=== PATIENT | female | born 1970 | race Caucasian/White ===

== ENCOUNTER 2016-04-30 16:26 | Inpatient (IN) | payer SELFPAY ==
[2016-04-30] MEDS ORDERED: ONDANSETRON 4 MG TAB.RAPDIS PO ONE (17:11)
--- NOTE | 2016-04-30 17:17 | ER Document Report ---
ED Medical Screen (RME) - General Chief Complaint: Abdominal Pain Stated Complaint: LOWER ABDOMINAL PAIN,VOMITING Mode of Arrival: Medic Information source: Patient Notes: 45 female presents to emergency department via EMS complaining of intermittent persistent mid and lower abdominal pain since yesterday that radiates to her back. Reports associated nausea and chills. Denies chest pain or shortness of breath. I have greeted and performed a rapid initial assessment of this patient. A comprehensive ED assessment and evaluation of the patient, analysis of test results and completion of the medical decision making process will be conducted by additional ED providers. TRAVEL OUTSIDE OF THE [place] IN LAST 30 DAYS: No - Related Data Allergies/Adverse Reactions: Penicillins Allergy (Intermediate, Verified 04/30/16 16:32) "skin burn", RASH Sulfa (Sulfonamide Antibiotics) Allergy (Intermediate, Verified 04/30/16 16:32) "skin burn" Past Medical History - Past Medical History Cardiac Medical History: Denies: Hx Coronary Artery Disease, Hx Heart Attack, Hx Hypertension Pulmonary Medical History: Reports: Hx Asthma Denies: Hx Bronchitis, Hx COPD, Hx Pneumonia Neurological Medical History: Denies: Hx Cerebrovascular Accident, Hx Seizures Renal/ Medical History: Denies: Hx Peritoneal Dialysis Musculoskeltal Medical History: Denies Hx Arthritis Past Surgical History: Reports: Hx Appendectomy, Hx Section - x3, Hx Tonsillectomy, Hx Tubal Ligation - Immunizations Immunizations up to date: Yes Hx Diphtheria, Pertussis, Tetanus Vaccination: Yes - 04/2015 Physical Exam - Vital signs Vitals: Temp Pulse Resp BP Pulse Ox 98.0 F 93 20 94/57 L 99 04/30/16 16:40 04/30/16 16:40 04/30/16 16:40 04/30/16 16:40 04/30/16 16:40 - General General appearance: Alert In distress: None - Respiratory Respiratory status: No respiratory distress - Cardiovascular Rhythm: Regular Pulses: Normal: Radial Normal capillary refill: Yes Course - Vital Signs Vital signs: Temp Pulse Resp BP Pulse Ox 98.2 F 110 H 20 123/69 99 04/30/16 17:05 04/30/16 17:05 04/30/16 17:05 04/30/16 17:05 04/30/16 17:05
[2016-04-30 18:53] LABS: HEMATOCRIT 39.3 % (36.0-47.0); HEMOGLOBIN 12.5 g/dL (12.0-15.5); HGB HCT DIFFERENCE -1.8; MEAN CORPUSCULAR HEMOGLOBIN 23.5 pg (27.0-33.4); MEAN CORPUSCULAR HGB CONC 31.8 g/dL (32.0-36.0); MEAN CORPUSCULAR VOLUME 74 fl (80-97); RED BLOOD COUNT 5.33 10^6/uL (3.72-5.28); RED CELL DISTRIBUTION WIDTH 16.7 % (11.5-14.0); WHITE BLOOD COUNT 14.7 10^3/uL (4.0-10.5)
[2016-04-30 19:11] LABS: BASOPHILS % (MANUAL) 0 % (0-2); EOSINOPHILS % (MANUAL) 1 % (0-6); LYMPHOCYTES % (MANUAL) 4 % (13-45); TOTAL CELLS COUNTED 100
[2016-04-30 19:13] LABS: ANISOCYTOSIS 1+; HYPOCHROMASIA SLIGHT; MICROCYTOSIS 1+; TOXIC GRANULATION SLIGHT
[2016-04-30 19:15] LABS: ALANINE AMINOTRANSFERASE 31 U/L (9-52); ALKALINE PHOSPHATASE 91 U/L (38-126); ANION GAP 12 (5-19); ASPARTATE AMINO TRANSFERASE 21 U/L (14-36); BILIRUBIN,TOTAL 1.8 mg/dL (0.2-1.3); BLOOD UREA NITROGEN 14 mg/dL (7-20); CALCIUM 9.5 mg/dL (8.4-10.2); CARBON DIOXIDE 22 mmol/L (22-30); CHLORIDE 99 mmol/L (98-107); CREATININE RESULT 1.11 mg/dL (0.52-1.25); GLUCOSE 200 mg/dL (75-110); LIPASE 25.8 U/L (23-300); POTASSIUM 4.6 mmol/L (3.6-5.0); SODIUM 133.3 mmol/L (137-145); TOTAL PROTEIN 7.7 g/dL (6.3-8.2)
[2016-04-30] MEDS ORDERED: NORMAL SALINE 1000 ML 1,000 ML IV PRN (20:47)
[2016-04-30] MEDS ORDERED: MORPHINE SULFATE 10 MG/ML INJ IV ONE (20:47)
[2016-04-30] MEDS ORDERED: FAMOTIDINE INJ/PF 20 MG/2 ML SDV IV ONE (20:47)
[2016-04-30] MEDS ORDERED: ONDANSETRON HCL INJ/PF 4 MG/2 ML SDV IV ONE (20:47)
--- NOTE | 2016-04-30 20:47 | ER Document Report ---
ED GI/ - General Chief Complaint: Abdominal Pain Stated Complaint: LOWER ABDOMINAL PAIN,VOMITING Time seen by provider: 20:47 Mode of Arrival: Medic TRAVEL OUTSIDE OF THE [place] IN LAST 30 DAYS: No - HPI Patient complains to provider of: Abdominal pain, Vomiting Onset: Other - Tuesday Timing/Duration: Persistent, Worse Quality of pain: Sharp, Stabbing Severity at maximum: Severe Severity in ED: Severe Pain Level: 5 Location: RLQ Associated symptoms: Chills, Diarrhea, Fever, Nausea, Vomiting Exacerbated by: Denies Relieved by: Denies Similar symptoms previously: Yes Recently seen / treated by doctor: No Notes: 05/01/16 03:59 Patient is a 45-year-old female who presents to the emergency room complaining of lower abdominal pain that started Tuesday night and has worsened over the past few days, she reports it is constant achy and sharp and stabbing on occasion, she reports fever and chills, nausea, vomiting and diarrhea, denies any sick contacts, no recent travel, no questionable food intake, patient reports a history of appendectomy in 2011 at a hospital in [place] - Related Data Allergies/Adverse Reactions: Penicillins Allergy (Intermediate, Verified 04/30/16 16:32) "skin burn", RASH Sulfa (Sulfonamide Antibiotics) Allergy (Intermediate, Verified 04/30/16 16:32) "skin burn" Past Medical History - General Information source: Patient - Social History Smoking Status: Unknown if Ever Smoked Family History: Reviewed & Not Pertinent Patient has suicidal ideation: No Patient has homicidal ideation: No - Past Medical History Cardiac Medical History: Denies: Hx Coronary Artery Disease, Hx Heart Attack, Hx Hypertension Pulmonary Medical History: Reports: Hx Asthma Denies: Hx Bronchitis, Hx COPD, Hx Pneumonia Neurological Medical History: Denies: Hx Cerebrovascular Accident, Hx Seizures Renal/ Medical History: Denies: Hx Peritoneal Dialysis Musculoskeltal Medical History: Denies Hx Arthritis Past Surgical History: Reports: Hx Appendectomy, Hx Section - x3, Hx Tonsillectomy, Hx Tubal Ligation - Immunizations Immunizations up to date: Yes Hx Diphtheria, Pertussis, Tetanus Vaccination: Yes - 04/2015 Hx Pneumococcal Vaccination: 03/14/12 Review of Systems - Review of Systems Constitutional: Chills, Fever EENT: No symptoms reported Cardiovascular: No symptoms reported Respiratory: No symptoms reported Gastrointestinal: See HPI Genitourinary: No symptoms reported Female Genitourinary: No symptoms reported Musculoskeletal: No symptoms reported Skin: No symptoms reported Hematologic/Lymphatic: No symptoms reported Neurological/Psychological: No symptoms reported -: Yes All other systems reviewed and negative Physical Exam - Vital signs Vitals: Temp Pulse Resp BP Pulse Ox 98.0 F 93 20 94/57 L 99 04/30/16 16:40 04/30/16 16:40 04/30/16 16:40 04/30/16 16:40 04/30/16 16:40 Interpretation: Hypotensive - General General appearance: Appears well, Alert - HEENT Head: Normocephalic, Atraumatic Eyes: Normal Pupils: PERRL - Respiratory Respiratory status: No respiratory distress Chest status: Nontender Breath sounds: Normal Chest palpation: Normal - Cardiovascular Rhythm: Regular Heart sounds: Normal auscultation Murmur: No - Abdominal Inspection: Normal, Obese Distension: No distension Bowel sounds: Normal Tenderness: Tender - Right lower quadrant and suprapubic Organomegaly: No organomegaly - Back Back: Normal, Nontender - Extremities General upper extremity: Normal inspection, Nontender, Normal color, Normal ROM , Normal temperature General lower extremity: Normal inspection, Nontender, Normal color, Normal ROM , Normal temperature, Normal weight bearing. No: Dayday's sign - Neurological Neuro grossly intact: Yes Cognition: Normal Orientation: AAOx4 Rene Coma Scale Eye Opening: Spontaneous Shannon Coma Scale Verbal: Oriented Rene Coma Scale Motor: Obeys Commands Shannon Coma Scale Total: 15 Speech: Normal Motor strength normal: LUE, RUE, LLE, RLE Sensory: Normal - Psychological Associated symptoms: Normal affect, Normal mood - Skin Skin Temperature: Warm Skin Moisture: Dry Skin Color: Normal Course - Re-evaluation Re-evalutation: 05/01/16 04:[address] scan reading shows evidence of appendicitis, I had a discussion with the radiologist, Dr. Rodriguez and informed him that patient reports a history of appendectomy in 2011, he took a closer look and reports that patient does have cervical changes but it appears as though a portion of the appendix was left behind and that is now infected, patient was discussed with the on-call surgeon, Dr. Red, who evaluated patient in the emergency room and it admitted patient for further evaluation and treatment, Dr. Red took patient to the OR for appendectomy - Vital Signs Vital signs: Temp Pulse Resp BP Pulse Ox 98.2 F 110 H 20 123/69 99 04/30/16 17:05 04/30/16 17:05 04/30/16 17:05 04/30/16 17:05 04/30/16 17:05 - Laboratory Result Diagrams: 04/30/16 18:35 04/30/16 18:35 Laboratory results interpreted by me: 04/30/16 04/30/16 04/30/16 18:35 18:35 22:32 WBC 14.7 H RBC 5.33 H MCV 74 L MCH 23.5 L MCHC 31.8 L RDW 16.7 H Seg Neuts % (Manual) 88 H Lymphocytes % (Manual) 4 L Abs Neuts (Manual) 12.9 H Sodium 133.3 L Est GFR (Non-Af Amer) 53 L Glucose 200 H Total Bilirubin 1.8 H Urine Ketones TRACE H Urine Urobilinogen 2.0 H - Diagnostic Test Radiology reviewed: Image reviewed, Reports reviewed - Transfer of Care Care transferred to following provider: Dr. Red Discharge - Discharge Clinical Impression: Acute appendicitis Qualifiers: Acute appendicitis type: with localized peritonitis Qualified Code(s): K35.3 - Acute appendicitis with localized peritonitis Condition: Fair Disposition: ADMITTED INPATIENT Admitting Provider: Surgicalist Unit Admitted: Surgical Floor
[2016-04-30 22:45] LABS: APPEARANCE,URINE CLEAR; BILIRUBIN,URINE NEGATIVE (NEGATIVE); GLUCOSE, URINE NEGATIVE (NEGATIVE); KETONES,URINE TRACE mg/dL (NEGATIVE); LEUKOCYTE ESTERASE,URINE NEGATIVE (NEGATIVE); NITRITE,URINE NEGATIVE (NEGATIVE); PROTEIN,URINE NEGATIVE (NEGATIVE)
[2016-04-30 22:49] LABS: URINE SPECIFIC GRAVITY > 1.060
[2016-04-30] MEDS ORDERED: ERTAPENEM SODIUM INJ 1 GM VIAL IV ONE (23:17)
[2016-05-01] MEDS ORDERED: ALBUTEROL SULFATE 0.083% NEB 2.5 MG/3 ML AMPUL NEB ONE (00:36)
[2016-05-01] MEDS ORDERED: MIDAZOLAM 2 MG/2 ML INJ ONE (00:40)
[2016-05-01] MEDS ORDERED: ONDANSETRON HCL INJ/PF 4 MG/2 ML SDV ONE (00:40)
[2016-05-01] MEDS ORDERED: DEXAMETHASONE SOD PHOSPHATE INJ 4 MG/1 ML VIAL ONE (00:40)
[2016-05-01] MEDS ORDERED: FENTANYL CITRATE INJ/PF 100 MCG/2 ML AMPUL ONE (00:40)
[2016-05-01] MEDS ORDERED: PROPOFOL INJ 200 MG/20 ML VIAL IV ONE (00:41)
[2016-05-01] MEDS ORDERED: MORPHINE SULFATE 10 MG/ML INJ ONE (00:41)
[2016-05-01] MEDS ORDERED: MORPHINE SULFATE 10 MG/ML INJ IV ONE (00:50)
[2016-05-01] MEDS ORDERED: LIDOCAINE 1% INJ-PF (10 MG/ML) 30 ML SDV ONE (01:14)
[2016-05-01] MEDS ORDERED: BUPIVACAINE HCL 0.25% /EPINEPHRINE INJ/PF 30 ML SDV ONE (01:15)
--- NOTE | 2016-05-01 01:53 | PDOC H&P ---
History of Present Illness Admission Date/PCP: 05/01/16 00:29 History of Present Illness: RADHA STOVER is a 45 year old white female with increasing abdominal pain since Tuesday night. Tuesday night had abdominal pain, lower abdomen, 2/ 10. Sharp. There is abdominal pain progressed to 5/10. also had nausea and vomiting. Tuesday abdominal pain increased in severity, 10/10, sharp , constant. Also radiated to the upper abdomen from the lower abdomen. Had fevers up to 102.5. Again had nausea and vomiting. Also reports headache, fatigue, loss of appetite over the last 2 days. Also reports chills, sweats, shakes. When standing had dizziness, lightheadedness and headaches. Denies blood in her stools, blood in her urine, pain with defecation, pain with urination, diarrhea, constipation. Difficult to become comfortable. Past surgical history: History of appendectomy for ruptured appendicitis in 2012 in [place], 3, right heel surgery in April 2015. Past Medical History Pulmonary Medical History: Reports: Asthma Endocrine Medical History: Reports: Obesity Psychiatric Medical History: Reports: Tobacco Dependency Past Surgical History Past Surgical History: Reports: Appendectomy, Section - x3, Orthopedic Surgery - Right heel surgery April 2015, Tonsillectomy, Tubal Ligation Social History Information Source: Patient Lives with: Family Smoking Status: Current Every Day Smoker Frequency of Alcohol Use: None Hx Recreational Drug Use: No Drugs: None Family History Family History: CAD, DM, Other - Denies any personal or family history of bleeding disorders, blood clots or anesthesia problems Parental Family History Reviewed: Yes Children Family History Reviewed: Yes Sibling(s) Family History Reviewed.: Yes Medication/Allergy Home Medications: Albuterol Sulfate [Proair HFA Inhalation Aerosol 8.5 gm MDI] 2 puff IH Q3HP PRN #1 mdi 04/30/13 Albuterol Sulfate [Ventolin 0.083% Neb 2.5 mg/3 mL Ampul] 2.5 mg NEB Q3HP PRN # 25 vial 04/30/13 Oxycodone HCl/Acetaminophen [Percocet 5-325 mg Tablet] 1 - 2 tab PO Q4H PRN #25 tablet 05/08/15 Allergies/Adverse Reactions: Penicillins Allergy (Intermediate, Verified 04/30/16 16:32) "skin burn", RASH Sulfa (Sulfonamide Antibiotics) Allergy (Intermediate, Verified 04/30/16 16:32) "skin burn" Review of Systems All systems: reviewed and no additional remarkable complaints except as stated Physical Exam Vital Signs: Temp Pulse Resp BP Pulse Ox 98.2 F 110 H 20 123/69 99 04/30/16 17:05 04/30/16 17:05 04/30/16 17:05 04/30/16 17:05 04/30/16 17:05 General appearance: PRESENT: mild distress, morbidly obese Head exam: PRESENT: normocephalic Eye exam: PRESENT: EOMI Mouth exam: PRESENT: moist, tongue midline Neck exam: ABSENT: JVD, lymphadenopathy, tenderness, thyromegaly Respiratory exam: PRESENT: clear to auscultation martin Cardiovascular exam: PRESENT: tachycardia GI/Abdominal exam: PRESENT: distended, soft, tenderness - Moderate to severe tenderness to palpation diffusely. Moderate in the upper abdomen, severe in the right lower quadrant.. ABSENT: rebound Extremities exam: ABSENT: pedal edema, tenderness Neurological exam: PRESENT: alert, oriented to person, oriented to place, oriented to time, oriented to situation Psychiatric exam: PRESENT: appropriate affect, normal mood Skin exam: ABSENT: jaundice, rash Results Impressions: Abdomen/Pelvis CT 04/30/16 20:47 IMPRESSION: CT FINDINGS COMPATIBLE WITH ACUTE APPENDICITIS. CHOLELITHIASIS WITHOUT CT EVIDENCE OF CHOLECYSTITIS. CHRONIC CHANGES RIGHT KIDNEY ABOVE. Status: Image reviewed by me Assessment & Plan - Diagnosis (1) Acute appendicitis Qualifiers: Acute appendicitis type: with localized peritonitis Qualified Code(s): K35.3 - Acute appendicitis with localized peritonitis Is this a current diagnosis for this admission?: YesPlan: Labs and films reviewed. Acute abdomen. Seems consistent with appendicitis. Patient has history of a laparoscopic appendectomy in [place] in 2011, but this appears to be a stump appendicitis. We talked about a variety of other options. We discussed that she does have an acute abdomen and regardless of the etiology, recommend surgery. Recommended laparoscopic appendectomy, possible open exploration, possible bowel resection, possible ostomy. I discussed pre-and postoperative expectations and limitations. I discussed risks , benefits and alternatives including , heart attack, stroke, blood clots in legs, blood clots in lungs, pneumonia, hernia, bleeding, infection, damage to surrounding structures such as bladder, bowel, blood vessels and ureters. We discussed that the etiology of the abdominal pain may not be the appendix, in which case we will perform an incidental appendectomy and look for other pathology. Understands and wishes to proceed with laparoscopic appendectomy.
[2016-05-01] MEDS ORDERED: BUPIVACAINE HCL 0.25% /EPINEPHRINE INJ/PF 30 ML SDV INJ ONE (02:00)
[2016-05-01] MEDS ORDERED: LIDOCAINE 1% INJ-PF (10 MG/ML) 30 ML SDV INJ ONE (02:00)
[2016-05-01] MEDS ORDERED: ALBUTEROL SULFATE 0.042% NEB (1.25 MG/3 ML) AMPUL NEB PRN (04:15)
[2016-05-01] MEDS ORDERED: ACETAMINOPHEN 100 ML IV ONE (04:22)
[2016-05-01] MEDS: MORPHINE SULFATE 10 MG/ML INJ IV PRN ×5 (05:54→22:25)
[2016-05-01] MEDS: ENOXAPARIN SODIUM INJ 40 MG/0.4 ML DISP.SYRIN SUBCUT SCH (08:28)
[2016-05-01] MEDS ORDERED: NEOSTIGMINE METHYLSULFATE 10 MG/10 ML VIAL ONE (10:24)
[2016-05-01] MEDS ORDERED: SUCCINYLCHOLINE CHLORIDE INJ 200 MG/10 ML VIAL ONE (10:24)
[2016-05-01] MEDS ORDERED: KETOROLAC TROMETHAMINE 60 MG/2 ML SDV ONE (10:24)
[2016-05-01] MEDS ORDERED: ROCURONIUM BROMIDE INJ 50 MG/5 ML VIAL IV ONE (10:24)
[2016-05-01] MEDS ORDERED: GLYCOPYRROLATE INJ 0.4 MG/2 ML VIAL ONE (10:24)
--- NOTE | 2016-05-01 10:34 | EKG REPORT ---
SEVERITY:- BORDERLINE ECG - SINUS TACHYCARDIA PROBABLE LEFT ATRIAL ABNORMALITY LEFT AXIS DEVIATION : Confirmed by: Gerardo Noble 01-May-2016 10:34:13
[2016-05-01] MEDS: DOCUSATE SODIUM 100 MG CAPSULE PO SCH ×2 (10:35→16:30)
[2016-05-01 11:13] LABS: HEMATOCRIT 31.3 % (36.0-47.0); MEAN CORPUSCULAR HEMOGLOBIN 23.7 pg (27.0-33.4); MEAN CORPUSCULAR HGB CONC 32.2 g/dL (32.0-36.0); MEAN CORPUSCULAR VOLUME 74 fl (80-97); RED BLOOD COUNT 4.26 10^6/uL (3.72-5.28)
[2016-05-01 11:17] LABS: ALANINE AMINOTRANSFERASE 32 U/L (9-52); ALKALINE PHOSPHATASE 56 U/L (38-126); ANION GAP 7 (5-19); ASPARTATE AMINO TRANSFERASE 21 U/L (14-36); BILIRUBIN,TOTAL 0.9 mg/dL (0.2-1.3); BLOOD UREA NITROGEN 15 mg/dL (7-20); CALCIUM 8.7 mg/dL (8.4-10.2); CARBON DIOXIDE 24 mmol/L (22-30); CHLORIDE 103 mmol/L (98-107); CREATININE RESULT 0.98 mg/dL (0.52-1.25); GLUCOSE 182 mg/dL (75-110); POTASSIUM 4.9 mmol/L (3.6-5.0); SODIUM 134.3 mmol/L (137-145); TOTAL PROTEIN 5.6 g/dL (6.3-8.2)
[2016-05-01 11:34] LABS: BAND NEUTROPHILS % (MANUAL) 8 % (3-5); BASOPHILS % (MANUAL) 0 % (0-2); EOSINOPHILS % (MANUAL) 0 % (0-6); LYMPHOCYTES % (MANUAL) 5 % (13-45); TOTAL CELLS COUNTED 100
[2016-05-01 11:36] LABS: HYPOCHROMASIA SLIGHT; MICROCYTOSIS 2+; OVALOCYTES SLIGHT; POIKILOCYTOSIS SLIGHT
[2016-05-01 11:37] LABS: HEMOGLOBIN 10.1 g/dL (12.0-15.5)
--- NOTE | 2016-05-01 12:12 | Operative Report ---
Operative Report DATE OF SURGERY: 05/01/16 PREOPERATIVE DIAGNOSIS: Acute appendicitis POSTOPERATIVE DIAGNOSIS: Ruptured appendicitis with diffuse suppurative peritonitis OPERATION: Laparoscopic converted to open appendectomy SURGEON: LEE VAZQUEZ ANESTHESIA: GA TISSUE REMOVED OR ALTERED: Appendix COMPLICATIONS: None noted ESTIMATED BLOOD LOSS: 100 mL INTRAOPERATIVE FINDINGS: Ruptured appendicitis with diffuse suppurative peritonitis PROCEDURE: The patient was brought to the operative suite and placed supine on the OR table. Timeout was performed. Antibiotics had been administered in the emergency department. Padding and positioning was appropriate. The patient was induced, intubated and maintained on general endotracheal anesthesia throughout the procedure. Llanos catheter was placed. Patient was prepped and draped in the normal sterile fashion. The skin above the umbilicus was infiltrated with local anesthetic. A 5 mm incision was made. An attempt to dissect down to the fascia with a Trevon was unsuccessful due to patient's size. The incision was extended to 1 cm and eventually 2 cm and an open cutdown was performed. 12 mm trocar was placed through this. Insufflation was advanced to high flow and pneumoperitoneum of 15 mmHg was obtained and maintained with procedure. Camera was placed through this incision confirming entry into the abdominal cavity without incident. Next, the 5 mm suprapubic and the 5 mm left lower quadrant incisions were placed in normal location and fashion under direct visualization after infiltration with local anesthetic. Instruments were introduced in the abdominal cavity was inspected. There was diffuse contamination with suppurative fluid throughout the abdominal cavity. There was a dense inflammatory phlegmon in the right lower quadrant. Some time was spent trying to dissect out this right lower quadrant phlegmon until the decision was made to convert to open. Midline incision was made from just above the umbilicus to pubic symphysis. Bookwalter retractor was placed. Copious irrigation was used to rinse the abdominal cavity free of contamination. Abdominal cavity was inspected. The liver, stomach, transverse colon, descending colon, sigmoid and rectum were unremarkable. The pelvis was full of purulent fluid which was suctioned and irrigated clear of the abdominal cavity. A great amount of time and care was spent to mobilize this right lower quadrant inflammatory phlegmon. The right colon was mobilized along the white line of Toldt using blunt and sharp dissection as well as electrocautery. The terminal ileum was dissected free. A right angle was used to dissect around the appendix at its base. The base of the appendix was healthy tissue and a ZACHARY stapler 55 blue load was used to divide across the junction of the cecum and the base the appendix. A 3 cm portion of the appendix came off with the staple off base, and the remainder the tissue was involved in the inflammatory phlegmon with adhesions. This was dissected free excised and sent to pathology for further analysis. One small bleeder was controlled with a 3-0 Vicryl hemostatic stitch. The field was copiously irrigated. Small bowel was run from the terminal ileum back 30 cm. It had an inflammatory purulent rind, but otherwise was normal appearing. Entire abdomen was again inspected and was irrigated copiously and suctioned. The bowel was returned to its anatomical position. A 15 Albanian round drain was placed in the right paracolic gutter from the liver down to the right lower quadrant, brought out through the right lower quadrant abdominal wall and sewn into place with a 2-0 Prolene suture. A second 15 Albanian round drain was placed in the pelvis and brought out just below the first drain and sewn into place with a 2-0 Prolene suture. Preliminary lap needle and sponge counts were correct. The incision was closed with looped 2-0 Prolene one working superior to inferior and one working inferior to superior and tying just below the midpoint. The wound was irrigated, closed with jeison and packed between the jeison with iodoform gauze. Sterile dressing was placed. The drains were connected to CANDI closed bulb suction. All lap, needle and sponge counts were correct. The patient tolerated procedure well and was taken recovery in stable condition.
[2016-05-01] MEDS: NORMAL SALINE 1000 ML 1,000 ML IV PRN (19:44)
[2016-05-01] MEDS ORDERED: ERTAPENEM SODIUM 1 GM in NORMAL SALINE 50 ML IV ONE (22:00)
[2016-05-01] MEDS ORDERED: ERTAPENEM SODIUM 1 GM in NORMAL SALINE 50 ML IV SCH (22:00)
[2016-05-01] MEDS ORDERED: ERTAPENEM SODIUM INJ 1 GM VIAL ONE (22:31)
[2016-05-02] MEDS: MORPHINE SULFATE 10 MG/ML INJ IV PRN ×4 (02:07→20:01)
[2016-05-02] MEDS ORDERED: ERTAPENEM SODIUM 1 GM in NORMAL SALINE 50 ML IV ONE ×2 (02:30→03:00)
--- NOTE | 2016-05-02 09:15 | PDOC PROGRESS REPORT ---
Subjective Subjective:: Denies nausea, vomiting, flatus, bowel movement. Some incisional pain, but much less abdominal pain compared to before surgery. Physical Exam Vital Signs: Temp Pulse Resp BP Pulse Ox 99.1 F 105 H 20 122/60 95 05/02/16 04:16 05/02/16 04:16 05/02/16 04:16 05/02/16 04:16 05/02/16 04:16 Intake & Output 05/01/16 05/02/16 05/03/16 06:59 06:59 06:59 Intake Total 4100 0 Output Total 405 1315 Balance 3695 -1315 Weight 125 kg 138.8 kg General appearance: PRESENT: no acute distress Head exam: PRESENT: normocephalic Eye exam: PRESENT: EOMI Mouth exam: PRESENT: tongue midline Respiratory exam: PRESENT: unlabored GI/Abdominal exam: PRESENT: soft, tenderness, other - Appropriate incisional tenderness. Dressings intact. CANDI drains with serosanguineous.. ABSENT: distended, firm Neurological exam: PRESENT: alert, oriented to situation Psychiatric exam: PRESENT: appropriate affect, normal mood Results Laboratory Results: 05/01/16 10:30 05/01/16 10:30 05/01/16 05/01/16 10:30 10:30 WBC 14.0 H RBC 4.26 Hgb 10.1 L D Hct 31.3 L MCV 74 L MCH 23.7 L MCHC 32.2 RDW 17.0 H Plt Count 264 Seg Neutrophils % Not Reportable Lymphocytes % Not Reportable Monocytes % Not Reportable Eosinophils % Not Reportable Basophils % Not Reportable Absolute Neutrophils Not Reportable Absolute Lymphocytes Not Reportable Absolute Monocytes Not Reportable Absolute Eosinophils Not Reportable Absolute Basophils Not Reportable Sodium 134.3 L Potassium 4.9 Chloride 103 Carbon Dioxide 24 Anion Gap 7 BUN 15 Creatinine 0.98 Est GFR ( Amer) > 60 Est GFR (Non-Af Amer) > 60 Glucose 182 H Calcium 8.7 Total Bilirubin 0.9 AST 21 ALT 32 Alkaline Phosphatase 56 Total Protein 5.6 L Albumin 3.0 L Impressions: Abdomen/Pelvis CT 04/30/16 20:47 IMPRESSION: CT FINDINGS COMPATIBLE WITH ACUTE APPENDICITIS. CHOLELITHIASIS WITHOUT CT EVIDENCE OF CHOLECYSTITIS. CHRONIC CHANGES RIGHT KIDNEY ABOVE. Assessment & Plan - Diagnosis (1) Acute appendicitis Qualifiers: Acute appendicitis type: with localized peritonitis Qualified Code(s): K35.3 - Acute appendicitis with localized peritonitis Is this a current diagnosis for this admission?: YesPlan: Doing much better than prior to surgery. Await return of bowel function. Continue IV antibiotics, SCDs, incentive spirometry, Lovenox, ambulation, CANDI drains.
[2016-05-02] MEDS: ENOXAPARIN SODIUM INJ 40 MG/0.4 ML DISP.SYRIN SUBCUT SCH (10:00)
[2016-05-02] MEDS: DOCUSATE SODIUM 100 MG CAPSULE PO SCH ×2 (11:20→18:43)
--- NOTE | 2016-05-02 11:45 | PDOC PROGRESS REPORT ---
Subjective Progress Note for:: 05/02/16 Subjective:: Patient has no complaints. She had no nausea. Physical Exam Vital Signs: Temp Pulse Resp BP Pulse Ox 99.2 F 98 18 130/66 H 92 05/02/16 07:39 05/02/16 07:39 05/02/16 07:39 05/02/16 07:39 05/02/16 07:39 Intake & Output 05/01/16 05/02/16 05/03/16 06:59 06:59 06:59 Intake Total 4100 0 Output Total 405 1315 Balance 3695 -1315 Weight 125 kg 138.8 kg General appearance: PRESENT: no acute distress, mild distress GI/Abdominal exam: PRESENT: other - Abdomen examined. Results Laboratory Results: 05/01/16 10:30 05/01/16 10:30 Impressions: Abdomen/Pelvis CT 04/30/16 20:47 IMPRESSION: CT FINDINGS COMPATIBLE WITH ACUTE APPENDICITIS. CHOLELITHIASIS WITHOUT CT EVIDENCE OF CHOLECYSTITIS. CHRONIC CHANGES RIGHT KIDNEY ABOVE. Assessment & Plan - Diagnosis (1) Acute appendicitis Qualifiers: Acute appendicitis type: with localized peritonitis Qualified Code(s): K35.3 - Acute appendicitis with localized peritonitis Is this a current diagnosis for this admission?: YesPlan: Patient is one half day status post laparoscopic conversion to open appendectomy through a midline incision drain placement. She is doing reasonably well, with packing removed. Plan: 1. Will advance to clear liquids as tolerated 2. Attempt to get patient to the shower. 3. Leave drains in position, continue intravenous antibiotics.
[2016-05-02] MEDS: OXYCODONE-ACETAMINOPHEN 5-325 MG TABLET PO PRN (13:55)
[2016-05-02] MEDS ORDERED: ERTAPENEM SODIUM 1 GM in NORMAL SALINE 50 ML IV SCH (22:00)
[2016-05-02] MEDS: FAMOTIDINE 20 MG TABLET PO SCH (22:11)
[2016-05-02] MEDS: ERTAPENEM SODIUM 1 GM in NORMAL SALINE 50 ML IV SCH (22:11)
[2016-05-03] MEDS: NORMAL SALINE 1000 ML 1,000 ML IV PRN (00:43)
[2016-05-03] MEDS: OXYCODONE-ACETAMINOPHEN 5-325 MG TABLET PO PRN ×3 (00:59→18:20)
[2016-05-03] MEDS: ONDANSETRON HCL INJ/PF 4 MG/2 ML SDV IV PRN ×3 (01:04→18:20)
[2016-05-03] MEDS: DOCUSATE SODIUM 100 MG CAPSULE PO SCH ×2 (09:43→17:26)
[2016-05-03] MEDS: FAMOTIDINE 20 MG TABLET PO SCH ×2 (09:43→21:43)
[2016-05-03] MEDS: ENOXAPARIN SODIUM INJ 40 MG/0.4 ML DISP.SYRIN SUBCUT SCH (09:44)
--- NOTE | 2016-05-03 11:49 | PDOC PROGRESS REPORT ---
Subjective Progress Note for:: 05/03/16 Subjective:: Patient has no complaints. Tolerating clear liquids well. Feels better today. Voiding. Patient is on her menses Physical Exam Vital Signs: Temp Pulse Resp BP Pulse Ox 98.7 F 79 16 124/63 95 05/03/16 07:10 05/03/16 07:10 05/03/16 07:10 05/03/16 07:10 05/03/16 07:10 Intake & Output 05/02/16 05/03/16 05/04/16 06:59 06:59 06:59 Intake Total 0 1291 Output Total 1315 1840 135 Balance -1315 -549 -135 Weight 138.8 kg 134.5 kg General appearance: PRESENT: no acute distress GI/Abdominal exam: PRESENT: other - Dressing removed; some loose jeison will be removed by the nursing staff; sero-sanguinous discharge from between the jeison. Right abdominal wall drains liberally draining Results Laboratory Results: 05/01/16 10:30 05/01/16 10:30 Impressions: Abdomen/Pelvis CT 04/30/16 20:47 IMPRESSION: CT FINDINGS COMPATIBLE WITH ACUTE APPENDICITIS. CHOLELITHIASIS WITHOUT CT EVIDENCE OF CHOLECYSTITIS. CHRONIC CHANGES RIGHT KIDNEY ABOVE. Assessment & Plan - Diagnosis (1) Acute appendicitis Qualifiers: Acute appendicitis type: with localized peritonitis Qualified Code(s): K35.3 - Acute appendicitis with localized peritonitis Is this a current diagnosis for this admission?: YesPlan: Patient is 2-1/2 day status post laparoscopic conversion to open appendectomy through a midline incision drain placement. Continues to do well with diet well tolerated multiple voiding having minimal serous drainage from abdominal wound Plan today will be to increase her activity, shower, start full liquid diet and move towards by mouth pain medication. Hopefully tomorrow we can be begin removing one of the drains
[2016-05-03] MEDS: ERTAPENEM SODIUM 1 GM in NORMAL SALINE 50 ML IV SCH (21:43)
[2016-05-04] MEDS: OXYCODONE-ACETAMINOPHEN 5-325 MG TABLET PO PRN ×2 (08:08→17:43)
[2016-05-04] MEDS: ONDANSETRON HCL INJ/PF 4 MG/2 ML SDV IV PRN ×2 (08:09→17:44)
--- NOTE | 2016-05-04 08:38 | PDOC PROGRESS REPORT ---
Subjective Subjective:: +nausea, +BM. amb once to wall and back yesterday. Physical Exam Vital Signs: Temp Pulse Resp BP Pulse Ox 98.6 F 93 18 127/78 H 98 05/04/16 08:00 05/04/16 08:00 05/04/16 08:00 05/04/16 08:00 05/04/16 08:00 Intake & Output 05/03/16 05/04/16 05/05/16 06:59 06:59 06:59 Intake Total 1291 1119 Output Total 1840 1660 Balance -549 -541 Weight 134.5 kg 134.4 kg General appearance: PRESENT: no acute distress, morbidly obese Head exam: PRESENT: normocephalic GI/Abdominal exam: PRESENT: hypoactive bowel sounds, soft, other - Incision clean dry and intact with jeison. JPs with serosanguineous gradually becoming less murky.. ABSENT: distended, tenderness Gentrourinary exam: PRESENT: indwelling catheter Neurological exam: PRESENT: alert, oriented to situation Psychiatric exam: PRESENT: appropriate affect, normal mood Skin exam: ABSENT: jaundice Results Laboratory Results: 05/01/16 10:30 05/01/16 10:30 Impressions: Abdomen/Pelvis CT 04/30/16 20:47 IMPRESSION: CT FINDINGS COMPATIBLE WITH ACUTE APPENDICITIS. CHOLELITHIASIS WITHOUT CT EVIDENCE OF CHOLECYSTITIS. CHRONIC CHANGES RIGHT KIDNEY ABOVE. Assessment & Plan - Diagnosis (1) Acute appendicitis Qualifiers: Acute appendicitis type: with localized peritonitis Qualified Code(s): K35.3 - Acute appendicitis with localized peritonitis Is this a current diagnosis for this admission?: YesPlan: Still high output from drains. Gradually becoming was murky. Shower daily. Increase ambulation. Discontinue Llanos. Had a BM, but reports nausea and has hypo-bowel sounds. Do not advance diet. Continue full liquid diet, drains, IV antibiotics, Lovenox, SCDs, incentive spirometry.
[2016-05-04] MEDS: DOCUSATE SODIUM 100 MG CAPSULE PO SCH ×2 (09:44→17:43)
[2016-05-04] MEDS: FAMOTIDINE 20 MG TABLET PO SCH ×2 (09:44→21:02)
[2016-05-04] MEDS: ENOXAPARIN SODIUM INJ 40 MG/0.4 ML DISP.SYRIN SUBCUT SCH (09:44)
[2016-05-04] MEDS: ERTAPENEM SODIUM 1 GM in NORMAL SALINE 50 ML IV SCH (21:02)
[2016-05-05] MEDS: ONDANSETRON HCL INJ/PF 4 MG/2 ML SDV IV PRN ×2 (07:51→16:49)
[2016-05-05] MEDS: OXYCODONE-ACETAMINOPHEN 5-325 MG TABLET PO PRN ×2 (07:52→16:50)
[2016-05-05] MEDS: FAMOTIDINE 20 MG TABLET PO SCH ×2 (09:47→21:20)
[2016-05-05] MEDS: ENOXAPARIN SODIUM INJ 40 MG/0.4 ML DISP.SYRIN SUBCUT SCH (09:47)
[2016-05-05] MEDS: DOCUSATE SODIUM 100 MG CAPSULE PO SCH ×2 (09:47→18:00)
--- NOTE | 2016-05-05 12:25 | PDOC PROGRESS REPORT ---
Subjective Subjective:: Denies nausea or vomiting. + Flatus. Hungry. Physical Exam Vital Signs: Temp Pulse Resp BP Pulse Ox 99.0 F 80 16 117/73 96 05/05/16 07:52 05/05/16 07:52 05/05/16 07:52 05/05/16 07:52 05/05/16 07:52 Intake & Output 05/04/16 05/05/16 05/06/16 06:59 06:59 06:59 Intake Total 1119 442 Output Total 1660 520 Balance -541 -78 Weight 134.4 kg 139.2 kg General appearance: PRESENT: no acute distress, morbidly obese Head exam: PRESENT: normocephalic Eye exam: PRESENT: EOMI Mouth exam: PRESENT: tongue midline GI/Abdominal exam: PRESENT: normal bowel sounds, soft, other - Incision clean dry loosely closed between jeison. New dressing placed. Both CANDI drains with serous fluid. Upper CANDI drain removed. Dressing placed.. ABSENT: distended, guarding, rebound, tenderness Neurological exam: PRESENT: alert, oriented to situation Results Laboratory Results: 05/01/16 10:30 05/01/16 10:30 Impressions: Abdomen/Pelvis CT 04/30/16 20:47 IMPRESSION: CT FINDINGS COMPATIBLE WITH ACUTE APPENDICITIS. CHOLELITHIASIS WITHOUT CT EVIDENCE OF CHOLECYSTITIS. CHRONIC CHANGES RIGHT KIDNEY ABOVE. Assessment & Plan - Diagnosis (1) Acute appendicitis Qualifiers: Acute appendicitis type: with localized peritonitis Qualified Code(s): K35.3 - Acute appendicitis with localized peritonitis Is this a current diagnosis for this admission?: YesPlan: MAXIMUM TEMPERATURE 99.0. Other vital signs stable/normal. Doing well. Advance diet to soft diet. Continue IV antibiotics. Recommend transitioning to oral at the time of discharge and finishing at least a seven-day course of antibiotics due to ruptured appendicitis with diffuse peritonitis at the time surgery.
[2016-05-05] MEDS: ERTAPENEM SODIUM 1 GM in NORMAL SALINE 50 ML IV SCH (21:20)
[2016-05-06] MEDS: OXYCODONE-ACETAMINOPHEN 5-325 MG TABLET PO PRN ×2 (01:50→09:49)
[2016-05-06] MEDS: ONDANSETRON HCL INJ/PF 4 MG/2 ML SDV IV PRN (01:55)
[2016-05-06] MEDS: DOCUSATE SODIUM 100 MG CAPSULE PO SCH (09:49)
[2016-05-06] MEDS: FAMOTIDINE 20 MG TABLET PO SCH (09:49)
[2016-05-06] MEDS: ENOXAPARIN SODIUM INJ 40 MG/0.4 ML DISP.SYRIN SUBCUT SCH (09:50)
[2016-05-06 10:32] VITALS: BP 125/66
--- NOTE | 2016-05-06 11:08 | DISCHARGE SUMMARY E ---
Discharge Summary NAME: RADHA STOVER : 1970 AGE: 45Y ADMITTED: 05/01/2016 DISCHARGED: 05/06/2016 REASON FOR ADMISSION: Acute appendicitis. SUMMARY OF HOSPITALIZATION: The patient is a 45-year-old female who presented to the emergency department complaining of abdominal pain. She was evaluated and found to have evidence of ruptured appendicitis with suppurative peritonitis. She underwent laparoscopic conversion to open appendectomy by Dr. Red on 05/01/2016. She had drains placed, and tolerated the procedure well. Postoperatively she had no complications. She had a mild ileus but this resolved. Midline wound packing removed uneventfully. Minimal drainage from midline dressing. On postoperative day 5, her right-sided drain was removed uneventfully. By this time she was felt to have received maximum benefit from hospitalization and was discharged home. FINAL DIAGNOSES: Acute appendicitis with perforation and suppurative peritonitis, status post laparoscopic conversion to open appendectomy by Dr. Kin Red. DISPOSITION: The patient was discharged home in care of family. Followup with Dr. Fong in approximately 1-2 weeks at [facility], be taught drain care, take Percocet, Zofran, and Augmentin as instructed. DICTATING PHYSICIAN: JACOB FONG M.D. [id number] PHY#: [id number] ID: [id number] JOB#: [id number] ACCT: [id number] cc:JACOB FONG M.D., E. R. >
== END 2016-05-06 12:06 | disposition home or self-care (01) | DRG 339 ==
LOC: ER 16:26 → UNDOADMIN 05-01 00:29 → EH 05-01 00:29 → 2N 05-01 05:30 → 3S 05-01 11:39
PROVIDERS: ATTEND Surgery
PROC: 0DJD4ZZ Inspection of Lower Intestinal Tract, Percutaneous Endoscopic Approach (ICD-10-PCS; 2016-05-01)
PROC: 0W9F00Z Drainage of Abdominal Wall with Drainage Device, Open Approach (ICD-10-PCS; 2016-05-01)
PROC: 0DTJ0ZZ Resection of Appendix, Open Approach (ICD-10-PCS; principal; 2016-05-01 01:30)
DX: K35.3 Acute appendicitis with localized peritonitis (principal); Z68.43 Body mass index [BMI] 50.0-59.9, adult; K56.7 Ileus, unspecified; J45.909 Unspecified asthma, uncomplicated; E66.9 Obesity, unspecified; F17.200 Nicotine dependence, unspecified, uncomplicated; Z88.0 Allergy status to penicillin; Z88.2 Allergy status to sulfonamides; Z82.49 Family history of ischemic heart disease and other diseases of the circulatory system; Z83.3 Family history of diabetes mellitus; Z90.49 Acquired absence of other specified parts of digestive tract; Z98.51 Tubal ligation status
CPT/HCPCS: 36415; 74177; 80053; 81001; 81025; 83690; 840; 85025; 88304; 93005; 93010; 94799; 96374; 96375; 99285; J0131; J0330; J1100; J1335; J1650; J1885; J2250; J2270; J2405; J2704; J3010; J3490; J7030; S0028

== ENCOUNTER → 2018-06-29 | Outpatient (CLI) | payer MEDICAID ==
--- NOTE | 2018-06-29 15:56 | WOMENS IMAGING REPORT ---
EXAM DESCRIPTION: BILAT SCREENING MAMMO W/CAD COMPLETED DATE/TIME: 06/29/2018 10:55 am REASON FOR STUDY: Z12.31 ROUTINE BILATERAL SCREENING Z12.31 ENCNTR SCREEN MAMMOGRAM FOR MALIGNANT N EOPLASM OF ARNALDO COMPARISON: None. TECHNIQUE: Standard craniocaudal and mediolateral oblique views of each breast recorded using [employer] acquisition. LIMITATIONS: None. FINDINGS: No masses, calcifications or architectural distortion. No areas of suspicion. Read with the assistance of CAD. .[facility] - R2 [employer] Version 1.3 .[facility] - R2 Cenova Version 2.1 .[facility] - R2 Cenova Version 2.4 .[facility] - R2 Cenova Version 2.4 .[facility] - R2 Maintenance Shop Clerk Version 9.2 IMPRESSION: NORMAL MAMMOGRAM. BIRADS 1. BREAST DENSITY: a. The breasts are almost entirely fatty. BIRAD: 1 NEGATIVE RECOMMENDATION: ROUTINE SCREENING COMMENT: The patient has been notified of the results by letter per [place] requirements. Additional no tification policies are in place for contacting patient with suspicious or incomplete findings. Quality ID #[id number]: The [employer] recommends an annual screening mammogram for women aged 40 years or over. This facility utilizes a reminder system to ensure that all patients receive reminder letters, and/or direct phone calls for appointments. This includes reminders for routine scr eening mammograms, diagnostic mammograms, or other Breast Imaging Interventions when appropriate. Th is patient will be placed in the appropriate reminder system. The [employer] (ACR) has developed recommendations for screening MRI of the breast s in certain patient populations, to be used in conjunction with mammography. Breast MRI surveillanc e may be appropriate for women with more than 20% lifetime risk of developing breast cancer as deter mined by genetic testing, significant family history of the disease, or history of mantle radiation f or Hodgkins Disease. ACR Practice Guidelines 2008. TECHNICAL DOCUMENTATION: FINDING NUMBER: (1) ASSESSMENT: (1) JOB ID: [id number] [employer]- All Rights Reserved Reading location - IP/workstation name: [email or web address]
== END ==
LOC: WI 10:37
PROVIDERS: ATTEND Nurse Practitioner
DX: Z12.31 Encounter for screening mammogram for malignant neoplasm of breast (principal)
CPT/HCPCS: 77067

== ENCOUNTER → 2019-08-27 | Outpatient (CLI) | payer MEDICAID ==
--- NOTE | 2019-08-27 07:54 | WOMENS IMAGING REPORT ---
EXAM DESCRIPTION: BILAT SCREENING MAMMO W/CAD IMAGES COMPLETED DATE/TIME: 08/27/2019 7:39 am REASON FOR STUDY: ROUTINE BILATERAL SCREENING;Z12.31 Z12.31 ENCNTR SCREEN MAMMOGRAM FOR MALIGNANT N EOPLASM OF ARNALDO COMPARISON: 2018 EXAM PARAMETERS: Standard craniocaudal and mediolateral oblique views of each breast recorded using digital acquisition. Read with the assistance of CAD. .[employer] Maintenance Technician Version 9.2 LIMITATIONS: None. FINDINGS: No suspicious masses, suspicious calcifications or architectural distortion. No areas of c oncern. IMPRESSION: NEGATIVE MAMMOGRAM. BIRADS 1 BREAST DENSITY: a. The breasts are almost entirely fatty. BIRAD: ASSESSMENT: 1 NEGATIVE RECOMMENDATION: ROUTINE SCREENING COMMENT: The patient has been notified of the results by letter per MQSA requirements. Additional no tification policies are in place for contacting patient with suspicious or incomplete findings. Quality ID #[id number]: The [employer] recommends an annual screening mammogram for women aged 40 years or over. This facility utilizes a reminder system to ensure that all patients receive reminder letters, and/or direct phone calls for appointments. This includes reminders for routine scr eening mammograms, diagnostic mammograms, or other Breast Imaging Interventions when appropriate. Th is patient will be placed in the appropriate reminder system. TECHNICAL DOCUMENTATION: FINDING NUMBER: (1) ASSESSMENT: (1) JOB ID: [id number] 2010 [employer]- All Rights Reserved Reading location - IP/workstation name: [email or web address]
== END ==
LOC: WI 07:24
PROVIDERS: ATTEND Nurse Practitioner Family
DX: Z12.31 Encounter for screening mammogram for malignant neoplasm of breast (principal)
CPT/HCPCS: 77067